=== PATIENT | male | born 1940 | race Caucasian/White ===

== ENCOUNTER 2019-12-06 15:32 | Inpatient (IN) | payer OTHER, MEDICARE ==
[~2019-12-06] VITALS: Ht 172.7 cm; Wt 113.0 kg
[~2019-12-06 15:32] MED LIST: ASPI325; Aspirin EC81 MG PO; BP MED; CALCIUM 500 +1 EAC4 PO; CARV25 PO; CLON.1 PO; CLOP75; CLOP75 PO; CRUTCH2 USE; DOC250 PO; DOXA2; Daily Vitamin1 EAC8 PO; Dyazide 37.5-21 EACH PO; FLUT1DIS5 INH; Flonase 0.05% N16 GM; GLUCHON PO; HYDACE5 PO; IBUP400 PO; IBUP600 PO; ISOMON20 PO; LISI20 PO; LOSA50 PO; METF500 PO; MONT10T PO; MULVITMINF; NAPR500 PO; NAPR550 PO; OXYACE5T PO; Protonix40 MG PO; ROSU10TA PO; ROSU5 PO; RXOXYACE PO; SALMON OIL; SIMV20; VENL37.5ER; VENL75ER PO; VITAMIN D PO; VYTORIN
[2019-12-06 15:57] LABS: BASOPHILS ABSOLUTE AUTO 0.07 K/mm3 (0.00-0.23); BASOPHILS PERCENT AUTO 1 % (0-2); EOSINOPHILS ABSOLUTE AUTO 0.09 K/mm3 (0.00-0.68); EOSINOPHILS PERCENT AUTO 1 % (0-6); Hematocrit 33.2 % (37.0-53.0); Hemoglobin 11.1 g/dL (13.5-17.5); IMMATURE GRAN ABSOLUTE AUTO 0.04 K/mm3 (0.00-0.10); IMMATURE GRAN PERCENT AUTO 0 % (0-1); LYMPHOCYTES PERCENT AUTO 18 % (21-46); MONOCYTES ABSOLUTE AUTO 0.69 K/mm3 (0.16-1.47); MONOCYTES PERCENT AUTO 6 % (4-13); Mean Corpuscular HGB Conc 33.4 g/dL (31.5-36.5); Mean Corpuscular Volume 96 fL (80-100); Mean Platelet Volume 11.6 fL (9.1-12.4); NEUTROPHILS ABSOLUTE AUTO 8.02 K/mm3 (1.96-9.15); NEUTROPHILS PERCENT AUTO 74 % (41-73); Platelet Count 262 K/mm3 (150-400); RDW Standard Deviation 45.3 fL (35.1-46.3); Red Blood Cell Count 3.47 M/mm3 (4.30-5.90); White Blood Cell Count 10.91 K/mm3 (4.00-11.30)
[2019-12-06 16:11] LABS: International Normalized Ratio 1.03
[2019-12-06 16:36] LABS: Albumin, Blood 3.4 g/dL (3.4-5.0); Bilirubin, Total 0.4 mg/dL (0.1-1.0); Bun/Creatinine Ratio 20.7 (12.0-20.0); Calcium, Blood 9.3 mg/dL (8.5-10.1); Creatinine, Blood 1.35 mg/dL (0.60-1.20); Globulin, Blood 3.3 g/dL (2.2-4.0); Potassium, Blood 4.1 mmol/L (3.5-5.5); Total Protein, Blood 6.7 g/dL (6.4-8.2)
[2019-12-06] MEDS ORDERED: HYDCHL25 (20:45)
[2019-12-06] MEDS ORDERED: PIOG15 PO (20:45)
[2019-12-06] MEDS ORDERED: POTCHL20ER (20:46)
[2019-12-06] MEDS ORDERED: ISOMON20 (20:46)
[2019-12-06] MEDS ORDERED: LOSA25 PO (20:47)
[2019-12-06] MEDS ORDERED: PROAIR DIGIHAL90 MCG (20:49)
[2019-12-06 23:00] LABS: Hematocrit 27.4 % (37.0-53.0); Hemoglobin 9.3 g/dL (13.5-17.5)
[2019-12-07 03:57] LABS: BASOPHILS ABSOLUTE AUTO 0.02 K/mm3 (0.00-0.23); BASOPHILS PERCENT AUTO 0 % (0-2); EOSINOPHILS ABSOLUTE AUTO 0.13 K/mm3 (0.00-0.68); EOSINOPHILS PERCENT AUTO 2 % (0-6); Hematocrit 26.5 % (37.0-53.0); IMMATURE GRAN ABSOLUTE AUTO 0.03 K/mm3 (0.00-0.10); IMMATURE GRAN PERCENT AUTO 0 % (0-1); LYMPHOCYTES ABSOLUTE AUTO 2.37 K/mm3 (0.84-5.20); LYMPHOCYTES PERCENT AUTO 30 % (21-46); MONOCYTES ABSOLUTE AUTO 0.67 K/mm3 (0.16-1.47); MONOCYTES PERCENT AUTO 9 % (4-13); Mean Corpuscular HGB 32.3 pg (26.0-34.0); Mean Corpuscular Volume 95 fL (80-100); Mean Platelet Volume 11.8 fL (9.1-12.4); NEUTROPHILS PERCENT AUTO 59 % (41-73); Platelet Count 190 K/mm3 (150-400); RDW Coefficient Variation 12.9 % (11.7-14.2); Red Blood Cell Count 2.79 M/mm3 (4.30-5.90); White Blood Cell Count 7.82 K/mm3 (4.00-11.30)
[2019-12-07 04:11] LABS: Bun/Creatinine Ratio 19.4 (12.0-20.0); Calcium, Blood 8.4 mg/dL (8.5-10.1); Creatinine, Blood 1.29 mg/dL (0.60-1.20); Potassium, Blood 3.7 mmol/L (3.5-5.5)
--- NOTE | 2019-12-07 06:21 | NUR ---
ADMIT NOTE/SHIFT SUMMARY PATIENT ADMITED EARLIER THIS SHIFT FROM THE ER. PATIENT PLEASENT AND COOPERATIVE UPON ARRIVAL TO THE UNIT. PATIENT ORIENTED TO THE ROOM, UNIT, AND CALL LIGHT. PATIENT REPORTS HE GETS DIZZY WHEN STANDING UP. PATIENT A STAND BY ASSIST TO THE BATHROOM. PATIENT HAS HAD TWO EPISODES OF BRIGHT RED BLEEDING RECTALLY LAST NIGHT. PROTONIX GTT RUNNING PER ORDERS. PATIENT USEING CPAP WITH CONTINUOUS BIOX WHILE ASLEEP. VITAL SIGNS CHARTED. WILL CONTINUE TO MONITOR PATIENT AND REPORT TO ONCOMING RN.
--- NOTE | 2019-12-07 08:14 | NUR ---
AM NOTE... ASSUMED CARE OF PT APROX 0700, PT IS A&Ox4 AND IND IN THE ROOM. PT WAS ADMITTED FOR GIB/RECTAL BLEEDING WITH BRIGH RED/BLACK TARRY STOOLS. CURRENTLY PT'S VS STABLE, PT'S H&H HAD DROPPED FROM 11 TO 9 SINCE ADMIT LAST NIGHT. PT DENIES ABD PAIN AT THIS TIME. BT PRESENT AND HYPOACTIVE ABD IS FRIM BUT NONTENDER TO PALP. L/S CLEAR T/O ON RA USES CPAP TO SLEEP. CALL LIGHT IN REACH WILL CONTINUE TO MONITOR
--- NOTE | 2019-12-07 11:09 | NUR ---
PT UPDATE... GI PROVIDER IN THE ROOM PT IS TO BE ON FULL LIQUIDS UNTIL Fri THEN NPO FOR SCOPE ON FRIDAY. PT IS AGREEABLE TO THIS PLAN OF CARE.
[2019-12-07 13:57] LABS: Hematocrit 26.7 % (37.0-53.0)
--- NOTE | 2019-12-07 17:13 | NUR ---
SHIFT SUMMARY. NO ACUTE NEGATIVE CHANGES NOTED THIS SHIFT. PT'S H&H HAS REMAINED STABLE AT THIS TIME. PT HAS HAD 2 BLOODY STOOLS THIS SHIFT. HE DENIES ANY ABD PAIN, BT PRESENT AND HYPOACTIVE, ABD IS STILL SLIGHLTY FIRM BUT NONTENDER TO PALP. PT IS C/O OF INCREASED GAS AT THIS TIME. PT HAS BEEN IND IN THE ROOM. VS STABLE T/O SHIFT. CALL LIGHT IN REACH WILL CONTINUE TO MONITOR UNTIL REPORT IS GIVEN TO ONCOMING RN.
[2019-12-07 20:42] LABS: Hemoglobin 9.6 g/dL (13.5-17.5)
[2019-12-08 04:09] LABS: BASOPHILS ABSOLUTE AUTO 0.05 K/mm3 (0.00-0.23); BASOPHILS PERCENT AUTO 1 % (0-2); EOSINOPHILS ABSOLUTE AUTO 0.14 K/mm3 (0.00-0.68); EOSINOPHILS PERCENT AUTO 2 % (0-6); Hematocrit 26.9 % (37.0-53.0); IMMATURE GRAN ABSOLUTE AUTO 0.03 K/mm3 (0.00-0.10); IMMATURE GRAN PERCENT AUTO 0 % (0-1); LYMPHOCYTES ABSOLUTE AUTO 2.44 K/mm3 (0.84-5.20); LYMPHOCYTES PERCENT AUTO 33 % (21-46); MONOCYTES ABSOLUTE AUTO 0.59 K/mm3 (0.16-1.47); MONOCYTES PERCENT AUTO 8 % (4-13); Mean Corpuscular HGB Conc 33.5 g/dL (31.5-36.5); Mean Corpuscular Volume 96 fL (80-100); Mean Platelet Volume 12.1 fL (9.1-12.4); NEUTROPHILS ABSOLUTE AUTO 4.19 K/mm3 (1.96-9.15); NEUTROPHILS PERCENT AUTO 56 % (41-73); Platelet Count 190 K/mm3 (150-400); RDW Standard Deviation 45.5 fL (35.1-46.3); Red Blood Cell Count 2.81 M/mm3 (4.30-5.90); White Blood Cell Count 7.44 K/mm3 (4.00-11.30)
[2019-12-08 04:30] LABS: Albumin, Blood 3.1 g/dL (3.4-5.0); Anion Gap 4 mmol/L (6-16); Blood Urea Nitrogen 21 mg/dL (8-24); Bun/Creatinine Ratio 16.8 (12.0-20.0); CO2, Blood 27 mmol/L (21-32); Calcium, Blood 8.4 mg/dL (8.5-10.1); Chloride, Blood 108 mmol/L (98-108); Creatinine, Blood 1.25 mg/dL (0.60-1.20); Glomerular Filtration Rate 59 (60-); Glucose, Blood 134 mg/dL (70-99); Phosphorus, Blood 3.2 mg/dL (2.5-4.9); Potassium, Blood 3.7 mmol/L (3.5-5.5); Sodium, Blood 139 mmol/L (136-145)
--- NOTE | 2019-12-08 06:44 | NUR ---
SHIFT SUMMARY PT REMAINS A&O X4, INDEPENDENT IN THE ROOM, VSS, ON ROOM AIR W CPAP WHILE SLEEPING. PT STATES HIS STOOLS HAVE SLOWED DOWN, 2 BM'S REPORTED THROUGH THE NIGHT. VOIDING WNL, PT DENIES PAIN/NAUSEA, TOLERATING CLEAR FLUIDS. ABD REMAINS DISTENDED. PROTONIX INFUSING PER EMAR. CALL LIGHT IN REACH. WCTM
--- NOTE | 2019-12-08 08:52 | NUR ---
AM NOTE... ASSUMED CARE OF PT APROX 0700. PT WAS ADMITTED FOR MELENA/GIB. PT HAS STATED NO BM SINCE YESTERDAY AFTERNOON. PT DENIES ABD PAIN AT THIS TIME. BT PRESENT AND HYPOACTIVE, ABD SLIGHTLY FIRM STILL BUT NONTENDER TO PALP. PT'S VS STABLE AT THIS TIME. PT HAS BEEN PUT ON CLEAR LIQUID DIET FOR COLONOSCOPY TOMORROW. CALL LIGHT IN REACH WILL CONTINUE TO MONITOR.
--- NOTE | 2019-12-08 17:21 | NUR ---
SHIFT SUMMARY... NO AUCUTE NEGATIVE CHANGES NOTED THIS SHIFT. PT'S VS HAVE BEEN STABLE. PT DENIES ANY PAIN AT ALL. PT HAS HAD 3 BRIGHT RED BLOODY STOOLS THIS SHIFT. PT IS GOING TO START COLON PREP AT 1900, HE CAN HAVE WATER UNTIL 0600 THEN NPO PER PROVIDER ORDERS. PT HAS BEEN IND IN THE ROOM. CALL LIGHT IN REACH WILL CONTINUE TO MONITOR UNTIL REPORT IS GIVEN TO ONCOMING RN.
--- NOTE | 2019-12-09 05:26 | NUR ---
SHIFT SUMMARY PT REMAINS A&O X4, ON ROOM AIR, VSS, INDEPENDENT IN THE ROOM. PT HAS COMPLETED HIS BOWEL PREP SOLUTION, HIS BM THIS AM IS CLEAR LIQUID. PT TOLERATED THE BOWEL PREP WITH NO PROBLEMS. PT WILL BE NPO AFTER 0600. PT CONTINUES TO PAIN. NO OTHER ACUTE CHANGES NOTED. WCTM
--- NOTE | 2019-12-09 07:43 | NUR ---
AM NOTE... ASSUMED CARE OF PT APROX 0700, PT IS A&OxE4 AND IND IN THE ROOM. PT IS HAVING COLONOSCOPY TODAY, COLON PREP WAS COMPLETED, STOOLS ARE CLEAR WITH SOME BLOOD NO SEDIMENT. PT'S VS STABLE. PT DENIES ANY ABD PAIN AT THIS TIME, BT PRESENT AND HYPERACTIVE ABD IS FRIM BUT NONTENDER TO PALP. PT HAS BEEN NPO SINCE 0600. CALL LIGHT IN REACH WILL CONTINUE TO MONITOR.
[2019-12-09 08:09] LABS: Hematocrit 25.7 % (37.0-53.0); Hemoglobin 8.8 g/dL (13.5-17.5)
--- NOTE | 2019-12-09 09:35 | NUR ---
12/09/19 0935 Renetta Cisneros History, Chart, Medications and Allergies reviewed before start of procedure. PATIENT CONFIRMS NPO STATUS AND AGREES WITH SCHEDULED PROCEDURE. MONITOR INTACT WITH CONTINUOUS PULSE OXIMETRY AND INTERMITTENT BP. O2 VIA N/C INTACT THROUGHOUT SEDATION/PROCEDURE. 3-LEAD EKG REVIEWED WITH PHYSICIAN PRIOR TO START OF PROCEDURE. DR. OLIVERA PROVIDING MAC.
[2019-12-09] MEDS ORDERED: CARV25 PO (15:15)
[2019-12-09] MEDS ORDERED: PANT20 PO (15:15)
--- NOTE | 2019-12-09 15:50 | NUR ---
PT D/C. PT D/C HOME AFTER COLONOSCOPY. PT'S VS STABLE. PT CURRENTLY DENIES ANY ABD PAIN/CHEST PAIN, N/V OR SOB. ALL OF PT'S BELONGINGS PACKED AND SENT WITH THE PT. IV WAS REMOVED WNL. NEW MEDICATION EDUCATION PROVIDED TO PT VERBALLY AND WRITTEN, DISCHARGE INSTRUCTIONS PROVIDED TO THE PT VERBALLY AND WRITTEN. PT REFUSED W/C ESCORT OUT OF THE BUILDING.
== END 2019-12-09 15:57 | disposition home or self-care (01) | DRG 378 ==
LOC: ER 15:32 → ERHOLD 15:33 → PCU 15:33
PROVIDERS: Emergency Medicine; Internal Medicine Gastroenterology; ADMIT Family Medicine
PROC: 0DBK8ZZ Excision of Ascending Colon, Via Natural or Artificial Opening Endoscopic (ICD-10-PCS; principal; 2019-12-09 10:30)
PROC: 0DBL8ZZ Excision of Transverse Colon, Via Natural or Artificial Opening Endoscopic (ICD-10-PCS; 2019-12-09 10:30)
PROC: 0DBN8ZZ Excision of Sigmoid Colon, Via Natural or Artificial Opening Endoscopic (ICD-10-PCS; 2019-12-09 10:30)
PROC: 0DBH8ZZ Excision of Cecum, Via Natural or Artificial Opening Endoscopic (ICD-10-PCS; 2019-12-09 10:30)
DX: K57.31 Diverticulosis of large intestine without perforation or abscess with bleeding (principal); D62 Acute posthemorrhagic anemia; N17.9 Acute kidney failure, unspecified; K63.5 Polyp of colon; Z79.82 Long term (current) use of aspirin; Z87.891 Personal history of nicotine dependence; Z95.1 Presence of aortocoronary bypass graft; I25.10 Atherosclerotic heart disease of native coronary artery without angina pectoris; Z79.02 Long term (current) use of antithrombotics/antiplatelets; Z66 Do not resuscitate; E78.5 Hyperlipidemia, unspecified; J44.9 Chronic obstructive pulmonary disease, unspecified; E03.9 Hypothyroidism, unspecified; G47.33 Obstructive sleep apnea (adult) (pediatric); K64.8 Other hemorrhoids; N18.3 Chronic kidney disease, stage 3 (moderate); I12.9 Hypertensive chronic kidney disease with stage 1 through stage 4 chronic kidney disease, or unspecified chronic kidney disease
CPT/HCPCS: 36415; 80048; 80053; 80069; 82272; 82947; 85014; 85018; 85025; 85610; 85730; 86850; 86900; 86901; 88305; 94640; 94660; 94762; 96366; 96374; 96376; 99285-25; A9270-GY; C9113; G0378; J2704; J7120

== ENCOUNTER → 2020-02-10 | Outpatient (CLI) | payer MEDICARE, OTHER ==
[~2020-02-10] MED LIST changes: +HYDCHL25; +ISOMON20; +LOSA25 PO; +PANT20 PO; +PIOG15 PO; +POTCHL20ER; +PROAIR DIGIHAL90 MCG
[2020-02-10 20:20] LABS: Microalbumin, Urine Quant. <5.000 mg/L (0.000-20.000); Protein, Urine Quantitative <5.0 mg/dL (0.0-11.9)
== END | disposition home or self-care (01) ==
LOC: LAB 11:00 → LAB SHORT 11:00
PROVIDERS: Internal Medicine Nephrology
DX: N18.3 Chronic kidney disease, stage 3 (moderate) (principal); D63.1 Anemia in chronic kidney disease; N25.81 Secondary hyperparathyroidism of renal origin; E55.9 Vitamin D deficiency, unspecified; R76.9 Abnormal immunological finding in serum, unspecified; R94.5 Abnormal results of liver function studies; R94.6 Abnormal results of thyroid function studies; D51.8 Other vitamin B12 deficiency anemias; D50.9 Iron deficiency anemia, unspecified; D52.8 Other folate deficiency anemias
CPT/HCPCS: 81050; 82043; 82570; 84156

== ENCOUNTER 2020-05-09 20:35 | Inpatient (IN) | payer OTHER, MEDICARE ==
[~2020-05-09] VITALS: Ht 172.7 cm; Wt 113.0 kg
[2020-05-09] MEDS ORDERED: ALBU90OI INH (20:52)
[2020-05-09] MEDS ORDERED: Isosorbide Mono30 MG PO (20:53)
[2020-05-09 22:03] LABS: BASOPHILS ABSOLUTE AUTO 0.01 K/mm3 (0.00-0.23); BASOPHILS PERCENT AUTO 0 % (0-2); EOSINOPHILS PERCENT AUTO 0 % (0-6); Hematocrit 42.3 % (37.0-53.0); Hemoglobin 14.7 g/dL (13.5-17.5); IMMATURE GRAN ABSOLUTE AUTO 0.03 K/mm3 (0.00-0.10); IMMATURE GRAN PERCENT AUTO 0 % (0-1); LYMPHOCYTES ABSOLUTE AUTO 1.23 K/mm3 (0.84-5.20); LYMPHOCYTES PERCENT AUTO 17 % (21-46); MONOCYTES ABSOLUTE AUTO 0.38 K/mm3 (0.16-1.47); MONOCYTES PERCENT AUTO 5 % (4-13); Mean Corpuscular HGB 30.4 pg (26.0-34.0); Mean Corpuscular HGB Conc 34.8 g/dL (31.5-36.5); Mean Corpuscular Volume 87 fL (80-100); Mean Platelet Volume 12.5 fL (9.1-12.4); NEUTROPHILS ABSOLUTE AUTO 5.61 K/mm3 (1.96-9.15); NEUTROPHILS PERCENT AUTO 77 % (41-73); Platelet Count 202 K/mm3 (150-400); RDW Coefficient Variation 15.9 % (11.7-14.2); RDW Standard Deviation 51.1 fL (35.1-46.3); Red Blood Cell Count 4.84 M/mm3 (4.30-5.90); White Blood Cell Count 7.26 K/mm3 (4.00-11.30)
[2020-05-09 22:23] LABS: Magnesium, Blood 2.1 mg/dL (1.6-2.4); Troponin I 0.043 ng/mL (0.000-0.040)
[2020-05-09 22:24] LABS: Albumin, Blood 3.1 g/dL (3.4-5.0); Albumin/Globulin Ratio 0.7 (0.8-1.8); Bilirubin, Total 0.6 mg/dL (0.1-1.0); Bun/Creatinine Ratio 21.5 (12.0-20.0); Calcium, Blood 8.6 mg/dL (8.5-10.1); Creatinine, Blood 1.81 mg/dL (0.60-1.20); Globulin, Blood 4.5 g/dL (2.2-4.0); Potassium, Blood 3.8 mmol/L (3.5-5.5); Total Protein, Blood 7.6 g/dL (6.4-8.2)
--- NOTE | 2020-05-10 01:15 | NUR ---
RECEIVED HAND OFF FROM Martine CABALLERO RN USING SBAR. TRANSPORTED TO ROOM PCU12 VIA STRETCHER. TRANSFERED SELF TO BED WITH STANDBY ASSIST, TOLERATED WELL. AAO X3, DIAL, FOLLOWES ALL COMMANDS. ORIENTED TO ROOM, CALL SYSTEM, AND POC, VOICES UNSERSTANDING. RESPIRATIONS EVEN AND UNLABORED ON O2 AT 2L/NC. LUNG SOUNDS COARSE BILATERALLY. ABDOMEN ROUND AND NONDISTENDED. BOWEL SOUNDS PRESENT IN ALL QUADS. STATES HAD DIARRHEA BM THIS AM AND IS NOT NORMAL FOR HIM. RIGHT HAND 20G PIV IS PATENT, INFUSING LEVAQUIN 750MG PER MD ORDERS. LEFT HAND SL PIV IS PATENT, FLUSHING WITH EASE. NO EDEMA NOTED. USES URINAL WITH EASE. DENEIS PAIN, DISCOMFORT, OR FURTHER NEEDS AT THIS TIME. SAFETY MEASURES IN PLACE. ADMISSION ASSESSMENT IN PROGRESS. WILL CONTINUE TO MONITOR.
[2020-05-10] MEDS ORDERED: ASPIR 8181 M1 PO (01:18)
--- NOTE | 2020-05-10 04:52 | NUR ---
SHIFT SUMMARY LYING IN SEMI FOWLERS WITH EYES CLOSED. HAS TRIED TO REST SINCE ADMISSION. AMBULATED TO COMMODE WITH STANDBY ASSIST, TOLERATED WELL. DENIES PAIN OR DISCOMFORT, OR FURTHER NEEDS AT THIS TIME. SAFETY MEASURES IN PLACE. WILL CONTINUE TO MONITOR AND GIVE HAND OFF TO ONCOMING SHIFT USING SBAR.
[2020-05-10 06:54] LABS: BASOPHILS PERCENT AUTO 0 % (0-2); EOSINOPHILS PERCENT AUTO 0 % (0-6); Hematocrit 45.9 % (37.0-53.0); Hemoglobin 15.6 g/dL (13.5-17.5); IMMATURE GRAN ABSOLUTE AUTO 0.01 K/mm3 (0.00-0.10); IMMATURE GRAN PERCENT AUTO 0 % (0-1); LYMPHOCYTES ABSOLUTE AUTO 0.76 K/mm3 (0.84-5.20); LYMPHOCYTES PERCENT AUTO 18 % (21-46); MONOCYTES ABSOLUTE AUTO 0.22 K/mm3 (0.16-1.47); MONOCYTES PERCENT AUTO 5 % (4-13); Mean Corpuscular HGB 30.2 pg (26.0-34.0); Mean Corpuscular Volume 89 fL (80-100); Mean Platelet Volume 12.7 fL (9.1-12.4); NEUTROPHILS ABSOLUTE AUTO 3.34 K/mm3 (1.96-9.15); NEUTROPHILS PERCENT AUTO 77 % (41-73); Platelet Count 214 K/mm3 (150-400); RDW Coefficient Variation 15.9 % (11.7-14.2); RDW Standard Deviation 52.1 fL (35.1-46.3); Red Blood Cell Count 5.17 M/mm3 (4.30-5.90); White Blood Cell Count 4.33 K/mm3 (4.00-11.30)
[2020-05-10 07:17] LABS: Albumin, Blood 3.1 g/dL (3.4-5.0); Albumin/Globulin Ratio 0.6 (0.8-1.8); Bilirubin, Total 0.6 mg/dL (0.1-1.0); Calcium, Blood 8.5 mg/dL (8.5-10.1); Creatinine, Blood 1.68 mg/dL (0.60-1.20); Globulin, Blood 5.1 g/dL (2.2-4.0); Potassium, Blood 3.8 mmol/L (3.5-5.5); Total Protein, Blood 8.2 g/dL (6.4-8.2); Troponin I 0.024 ng/mL (0.000-0.040)
[2020-05-10 07:32] LABS: Creatine Kinase MB 6.1 ng/mL (0.0-3.6); Creatine Kinase MB Index 0.7 (0.0-4.0)
--- NOTE | 2020-05-10 12:54 | NUR ---
Echocardiogram completed.
--- NOTE | 2020-05-10 17:42 | NUR ---
SHIFT SUMMARY PT A&Ox4; FORGETFUL AT TIMES. CALM AND COOPERATIVE WITH CARE. TREMORS NOTED. PT DENIES PAIN, CHEST PAIN, NAUSEA, AND DIZZINESS. PT REPORTS SOB WITH ACTIVITY; SPO2>90% ON RA AT REST; 2L O2 VIA NC WITH ACTIVITY. 1 PERSON ASSIST TO BATHROOM WITH WALKER. VSS. NO OTHER ACUTE CHANGES NOTED DURING SHIFT. WILL CONTINUE TO MONITOR UNITL REPORT GIVEN TO ONCOMING RN.
--- NOTE | 2020-05-10 18:35 | NUR ---
SHIFT SUMMARY THIS AM PT RESPONDING TO VERBAL STIMULI; QUICKYL FALLING BACK TO SLEEP. DR BRITT AT BEDSIDE; NEW ORDERS FOR STAT ABG; DR NOTIFIED OF RESULTS; RT TO BEDSIDE TO CHANGE BIPAP SETTING. AFTER APPROX AN HOUR ON BIPAP PT MORE AWAKE; ORIENTED x3; ANXIOUS AT TIME, COOPERATIVE WITH CARE. PT RESTING IN BED, REPOSITIONED FOR COMFORT AND PRESSURE ULCER PREVENTION. PT DENIES PAIN, NAUSEA, CHEST PAIN, AND DIZZINESS. PT SOB WITH ACTIVITY/SPEAKING. OTHER VSS. NO OTHER ACUTE CHANGES NOTED DURING SHIFT. WILL CONTINUE TO MONITOR REPORT GIVEN TO ONCOMING RN.
--- NOTE | 2020-05-10 20:30 | NUR ---
DR. GOODWIN CALLED TO REPORT ECHO RESULTS; POSSIBLE AORTIC VALVE VEGETATION; NOTIFY HOSPITALIST FOR POSSIBLE CARDIO CONSULT.
--- NOTE | 2020-05-10 20:53 | NUR ---
CALLED SHELBY SANTANA TO UPDATE ON [facility] RESULTS; CALL HOSPITALIST AT 0700 FOR POSSIBLE CARDIO CONSULT NEED.
--- NOTE | 2020-05-10 21:48 | NUR ---
ASSUMED CARE OF PATIENT AT APPROXIMATELY 1905 FROM TRACI Castro RN. PATIENT IN ISOLATION FOR COVID. PATIENT ALERT AND ORIENTED X4; FORGETFUL AT TIMES; WEAK; REPORTS FEELS WEAKER TODAY COMPARED TO YESTERDAY; HAS NEW TREMOR THIS WEEK. PATIENT SBA OUT OF BED. PATIENT'S DAUGHTER CALLED AND BROUGHT PATIENT'S GALSSES IN. PATIENT REPORTED HIS EYES WERE BURNING; IMPROVED AFTER USES COOL WASHCLOTH. PATIENT DENIES PAIN, NUMBNESS, TINGLING, DIZZINESS OR NAUSEA. PATIENT REPORTS POOR APPETITE. PIV X2. CPAP BEING SET UP IN ROOM; PATIENT WEARS ONE AT NIGHT AT HOME; DAUGHTER TO BRING IN HOME CPAP TOMORROW. MEDICAL NO TELE STATUS. OXYGEN SATURATION ABOVE 90% ON ROOM AIR; 2LPM VIA NC W/ AMBULATION. PATIENT CURRENLTY RESTING IN BED; CALL LIGHT IN REACH; BED IN LOWEST POSISTION; BED ALARM ON; WILL CONTINUE TO MONITOR AND ASSESS UNTIL END OF SHIFT.
[2020-05-11 04:19] LABS: BASOPHILS ABSOLUTE AUTO 0.01 K/mm3 (0.00-0.23); BASOPHILS PERCENT AUTO 0 % (0-2); EOSINOPHILS PERCENT AUTO 0 % (0-6); Hematocrit 45.2 % (37.0-53.0); Hemoglobin 15.4 g/dL (13.5-17.5); IMMATURE GRAN ABSOLUTE AUTO 0.04 K/mm3 (0.00-0.10); IMMATURE GRAN PERCENT AUTO 1 % (0-1); LYMPHOCYTES ABSOLUTE AUTO 1.31 K/mm3 (0.84-5.20); LYMPHOCYTES PERCENT AUTO 16 % (21-46); MONOCYTES ABSOLUTE AUTO 0.45 K/mm3 (0.16-1.47); MONOCYTES PERCENT AUTO 6 % (4-13); Mean Corpuscular HGB 30.1 pg (26.0-34.0); Mean Corpuscular HGB Conc 34.1 g/dL (31.5-36.5); Mean Corpuscular Volume 88 fL (80-100); Mean Platelet Volume 12.7 fL (9.1-12.4); NEUTROPHILS ABSOLUTE AUTO 6.35 K/mm3 (1.96-9.15); NEUTROPHILS PERCENT AUTO 78 % (41-73); Platelet Count 232 K/mm3 (150-400); RDW Coefficient Variation 15.9 % (11.7-14.2); RDW Standard Deviation 51.5 fL (35.1-46.3); Red Blood Cell Count 5.12 M/mm3 (4.30-5.90); White Blood Cell Count 8.16 K/mm3 (4.00-11.30)
[2020-05-11 04:41] LABS: Albumin, Blood 2.9 g/dL (3.4-5.0); Albumin/Globulin Ratio 0.6 (0.8-1.8); Bilirubin, Total 0.4 mg/dL (0.1-1.0); Bun/Creatinine Ratio 30.3 (12.0-20.0); Calcium, Blood 8.9 mg/dL (8.5-10.1); Creatinine, Blood 2.01 mg/dL (0.60-1.20); Globulin, Blood 4.8 g/dL (2.2-4.0); Magnesium, Blood 2.6 mg/dL (1.6-2.4); Potassium, Blood 3.8 mmol/L (3.5-5.5); Total Protein, Blood 7.7 g/dL (6.4-8.2)
--- NOTE | 2020-05-11 06:11 | NUR ---
PATIENT SLEPT ABOUT SIX HOURS LAST NIGHT; CPAP SET UP BY RT; DAUGHTER TO BRING IN HOME CPAP TODAY. PATIENT HAD BEDBATH WITH ASSIST. VSS. CBG WITH MORNING LABS IN 300'S; DR. HAYWARD NOTIFIED; ORDERS FOR CBG AND MEDIUM SLIDING SCALE. WILL CONTINUE TO MONITOR AND ASSESS UNTIL END OF SHIFT.
--- NOTE | 2020-05-11 09:26 | NUR ---
Call from Dr. Chao while I was in the pt's room. He states that with covid positivity and pt's overall stable condition, GERARD not advised at this time. He will call DR. iNx, the hospitalist, he said. Phone number of Dr. Nix given to him at this time.
--- NOTE | 2020-05-11 10:01 | NUR ---
Kana is sitting up in the chair beside his bed. He is pleasantly conversant, cooperative, and alert and oriented. STates that he is being bothered by a persistent, dry cough which interferes with his rest and sleep. Lung sounds are clear anteriorly, but fine inspiratory crackles noted in the bases. He states that he is not able to take in really deep breaths right now. Denies any other concerns at this time.
--- NOTE | 2020-05-11 11:53 | NUR ---
Attempted to reach Dr. Simms rgarding blood sugar greater than 400. Pt was given 12 u insulin per standing orders. He is sitting on the side of the bed, eating lunch. STates that he had an unremarkable bowel movement this morning. States he takes Glimiperide 5 mg bid at home, as well as Metformin 500 mg daily.
[2020-05-11] MEDS ORDERED: GLIP5 PO (11:56)
[2020-05-11] MEDS ORDERED: METF500 PO (11:56)
--- NOTE | 2020-05-11 13:44 | NUR ---
Blood sugar rechecked 2 hours post greater than 400 result, and post 12 u delivery of sc humalog. Results remain greater than 400. Left message for Dr. Simms. Lantus was given per orders, and IV fluids were started at this time as well. Dr. Merino here to see the patient. Tessalon Perle was given per PRN orders and pt request for irritating dry cough.
--- NOTE | 2020-05-11 14:08 | NUR ---
Kana has been alert, oriented, pleasantly conversant, and without additional complaints this afternoon. Dr. Merino was here to see him. Kana has been independently ambulatory to the bathroom to void and have a BM today. Appetite is good, and he is asking when he might be able to go home. Dr. Merino tells him that he will probably be here at least until Friday.
--- NOTE | 2020-05-11 22:16 | NUR ---
ASSUMED CARE OF PATIENT AT APPROXIMATELY 1905 FROM DASHA Pardo RN. PATIENT IN ISOLATION FOR COVID. PATIENT ALERT AND ORIENTED X4; FORGETFUL AT TIMES; REPORTS DOESNT FEEL BETTER TODAY; TREMOR W/ AMBULATION; PATIENT SBA OUT OF BED. PATIENT DENIES PAIN, NUMBNESS, TINGLING, DIZZINESS OR NAUSEA. PATIENT REPORTS APPETITE IMPROVING. PIV X2. MEDICAL NO TELE STATUS. OXYGEN SATURATION ABOVE 90% ON ROOM AIR; 2LPM VIA NC W/ AMBULATION; HOME CPAP SET UP AND PATIENT USING AT NIGHT. PATIENT CURRENLTY RESTING IN BED; CALL LIGHT IN REACH; BED IN LOWEST POSISTION; BED ALARM ON; WILL CONTINUE TO MONITOR AND ASSESS UNTIL END OF SHIFT.
--- NOTE | 2020-05-12 06:20 | NUR ---
PATIENT SLEPT ABOUT EIGHT HOURS LAST NIGHT. VSS. WILL CONTINUE TO MONITOR AND ASSESS UNTIL END OF SHIFT.
[2020-05-12 08:28] LABS: BASOPHILS ABSOLUTE AUTO 0.01 K/mm3 (0.00-0.23); BASOPHILS PERCENT AUTO 0 % (0-2); EOSINOPHILS PERCENT AUTO 0 % (0-6); Hematocrit 42.3 % (37.0-53.0); Hemoglobin 14.5 g/dL (13.5-17.5); IMMATURE GRAN ABSOLUTE AUTO 0.11 K/mm3 (0.00-0.10); IMMATURE GRAN PERCENT AUTO 1 % (0-1); LYMPHOCYTES ABSOLUTE AUTO 0.98 K/mm3 (0.84-5.20); LYMPHOCYTES PERCENT AUTO 8 % (21-46); MONOCYTES ABSOLUTE AUTO 0.54 K/mm3 (0.16-1.47); MONOCYTES PERCENT AUTO 4 % (4-13); Mean Corpuscular HGB 29.8 pg (26.0-34.0); Mean Corpuscular HGB Conc 34.3 g/dL (31.5-36.5); Mean Corpuscular Volume 87 fL (80-100); NEUTROPHILS ABSOLUTE AUTO 11.42 K/mm3 (1.96-9.15); NEUTROPHILS PERCENT AUTO 88 % (41-73); Platelet Count 265 K/mm3 (150-400); RDW Coefficient Variation 15.8 % (11.7-14.2); RDW Standard Deviation 50.2 fL (35.1-46.3); Red Blood Cell Count 4.87 M/mm3 (4.30-5.90); White Blood Cell Count 13.06 K/mm3 (4.00-11.30)
[2020-05-12 08:45] LABS: Albumin/Globulin Ratio 0.7 (0.8-1.8); Bilirubin, Total 0.5 mg/dL (0.1-1.0); Bun/Creatinine Ratio 39.4 (12.0-20.0); Calcium, Blood 8.3 mg/dL (8.5-10.1); Creatinine, Blood 1.7 mg/dL (0.60-1.20); Globulin, Blood 4.2 g/dL (2.2-4.0); Potassium, Blood 3.8 mmol/L (3.5-5.5); Total Protein, Blood 7.2 g/dL (6.4-8.2)
--- NOTE | 2020-05-12 09:03 | NUR ---
Kana reports that his breathing is still difficult at times. STates he still can't take deep breaths easily.. STates that he is able to walk around as needed, to get to the bathroom and such. spo2 noted 90-91% while sitting on side of bed, eating breakfast. Lungs clear save for fine inspiratory crackles noted on right lower lobe. Pt reports appetite good. STates had about "3 ounces" of bright red blood passed in stool yesterday. STates brown loose BM today with about 1 tsp of maroon blood today, which is "better than yesterday". Denies pain.
--- NOTE | 2020-05-12 12:05 | NUR ---
Call to Dr. Simms regarding CBG at noon. Order received for 10 u Lantus now. The pt states he is not hungry, he is lying in bed, watching TV. Lunch tray held for now.
--- NOTE | 2020-05-12 17:20 | NUR ---
Pt is sitting on the side of the bed, eating dinner. CBG improved. PT states it has been a quiet afternoon, and that his breathing has been better. STates that he did produce a small amount of page sputum this afternoon. Vital signs stable.
--- NOTE | 2020-05-12 21:53 | NUR ---
ALERT AND ORIENTED, INDEPENDENT IN ROOM. SOB WITH AMBULATION TO THE BR, ON RA, BIOX 88% AFTER UP WALKING RECOVERS AFTER 15-20MINS. LUNGS ARE DECREASED WITH RHONCHI/WHEEZE THAT CLEARS WITH COUGH. NO COMPLAINTS OF PAIN. EATING WELL AND HYDRATING WITH WATER. PATIENT STATES THAT HE HAS BEEN VOIDING NORMALLY WITH YELLOW URINE. CALL LIGHT IS WITH IN REACH.
--- NOTE | 2020-05-13 04:41 | NUR ---
PATIENT SLEPT WITH CPAP ON. INDEPENDENT IN ROOM. NO ACUTE CHANGES.
[2020-05-13 08:23] LABS: BASOPHILS ABSOLUTE AUTO 0.01 K/mm3 (0.00-0.23); BASOPHILS PERCENT AUTO 0 % (0-2); EOSINOPHILS PERCENT AUTO 0 % (0-6); Hematocrit 40.8 % (37.0-53.0); Hemoglobin 14.2 g/dL (13.5-17.5); IMMATURE GRAN ABSOLUTE AUTO 0.05 K/mm3 (0.00-0.10); IMMATURE GRAN PERCENT AUTO 0 % (0-1); LYMPHOCYTES ABSOLUTE AUTO 0.96 K/mm3 (0.84-5.20); LYMPHOCYTES PERCENT AUTO 8 % (21-46); MONOCYTES ABSOLUTE AUTO 0.67 K/mm3 (0.16-1.47); MONOCYTES PERCENT AUTO 6 % (4-13); Mean Corpuscular HGB 30.1 pg (26.0-34.0); Mean Corpuscular HGB Conc 34.8 g/dL (31.5-36.5); Mean Corpuscular Volume 86 fL (80-100); Mean Platelet Volume 12.8 fL (9.1-12.4); NEUTROPHILS PERCENT AUTO 86 % (41-73); Platelet Count 250 K/mm3 (150-400); RDW Coefficient Variation 15.8 % (11.7-14.2); RDW Standard Deviation 50.1 fL (35.1-46.3); Red Blood Cell Count 4.72 M/mm3 (4.30-5.90); White Blood Cell Count 11.99 K/mm3 (4.00-11.30)
[2020-05-13 08:48] LABS: Albumin, Blood 2.9 g/dL (3.4-5.0); Albumin/Globulin Ratio 0.7 (0.8-1.8); Bilirubin, Total 0.6 mg/dL (0.1-1.0); Bun/Creatinine Ratio 39.4 (12.0-20.0); Calcium, Blood 8.3 mg/dL (8.5-10.1); Creatinine, Blood 1.55 mg/dL (0.60-1.20); Globulin, Blood 3.9 g/dL (2.2-4.0); Potassium, Blood 4.3 mmol/L (3.5-5.5); Total Protein, Blood 6.8 g/dL (6.4-8.2)
--- NOTE | 2020-05-13 18:40 | NUR ---
SUMMARY NO ACUTE CHANGES T/O SHIFT. PT INDEPENDENT IN ROOM. ON RA WHILE AWAKE, USES CPAP AT REST. COVERED CBGS PER ORDERS T/O SHIFT. PT REPORTED HAD THREE UNMEASURED VOIDS. CALL LIGHT IN REACH.
[2020-05-14 04:41] LABS: Bun/Creatinine Ratio 38.4 (12.0-20.0); Calcium, Blood 8.2 mg/dL (8.5-10.1); Creatinine, Blood 1.46 mg/dL (0.60-1.20); Magnesium, Blood 2.7 mg/dL (1.6-2.4); Potassium, Blood 3.9 mmol/L (3.5-5.5)
--- NOTE | 2020-05-14 06:50 | NUR ---
SHIFT SUMMARY PT SLEPT T/O SHIFT. PT WORE CPAP T/O SHIFT. OXYGEN SATURATION REMAINED ABOVE 92%. VS REMAIN STABLE. PT ALERT AND ORIENTED AND USES CALL LIGHT APPROPRIATELY. PT REPORTS NO CP OR PRESSURE. WILL CONTINUE TO MONITOR UNTIL REPORT GIVEN TO DAYSHIFT RN.
--- NOTE | 2020-05-14 07:30 | NUR ---
ASSUMED CARE OF PT AT 0700. REPORT FROM ARIADNA AGARWAL. PT RESTING IN BED. WAKES c VERBAL STIMULI. PT WEARING HOME CPAP. ON RA FOR MEALS. PT ABLE TO PLACE CPAP WHEN HE SLEEPS. DENIES NEEDS. REPORTS PRODUCTIVE COUGH c POSADA SPUTUM. PT SPEAKING IN FULL SENTANCES. LUNGS DIMINISHED IN BASES. PT P/W/D. VSS. PT INDEPENDENT IN ROOM. SITTING AT BEDSIDE FOR BREAKFAST. PT DENIES NEEDS. WILL CONTINUE TO MONITOR.
[2020-05-14 07:58] LABS: BASOPHILS ABSOLUTE AUTO 0.02 K/mm3 (0.00-0.23); BASOPHILS PERCENT AUTO 0 % (0-2); EOSINOPHILS PERCENT AUTO 0 % (0-6); Hemoglobin 13.6 g/dL (13.5-17.5); IMMATURE GRAN ABSOLUTE AUTO 0.12 K/mm3 (0.00-0.10); IMMATURE GRAN PERCENT AUTO 1 % (0-1); LYMPHOCYTES ABSOLUTE AUTO 1.23 K/mm3 (0.84-5.20); LYMPHOCYTES PERCENT AUTO 9 % (21-46); MONOCYTES ABSOLUTE AUTO 0.89 K/mm3 (0.16-1.47); MONOCYTES PERCENT AUTO 7 % (4-13); Mean Corpuscular HGB 29.8 pg (26.0-34.0); Mean Corpuscular Volume 88 fL (80-100); NEUTROPHILS ABSOLUTE AUTO 10.93 K/mm3 (1.96-9.15); NEUTROPHILS PERCENT AUTO 83 % (41-73); Platelet Count 229 K/mm3 (150-400); RDW Coefficient Variation 15.9 % (11.7-14.2); RDW Standard Deviation 51.2 fL (35.1-46.3); Red Blood Cell Count 4.57 M/mm3 (4.30-5.90); White Blood Cell Count 13.19 K/mm3 (4.00-11.30)
[2020-05-14 07:59] LABS: Mean Platelet Volume 13.4 fL (9.1-12.4)
[2020-05-14 09:24] LABS: Albumin, Blood 2.8 g/dL (3.4-5.0); Albumin/Globulin Ratio 0.8 (0.8-1.8); Bilirubin, Direct 0.1 mg/dL (0.0-0.3); Bilirubin, Indirect 0.4 mg/dL (0.1-0.7); Bilirubin, Total 0.5 mg/dL (0.1-1.0); Globulin, Blood 3.6 g/dL (2.2-4.0); Total Protein, Blood 6.4 g/dL (6.4-8.2)
--- NOTE | 2020-05-14 18:17 | NUR ---
SHIFT SUMMARY NO ACUTE CHANGES THIS SHIFT. PT INDEPENDENT IN ROOM. REPORTS MILD DYSNEA c EXERTION. REMAINED ON RA ENTIRE SHIFT. GOOD APPETITE. VSS. WILL CONTINUE TO MONITOR UNTIL REPORT TO ONCOMING NURSE.
--- NOTE | 2020-05-15 05:37 | NUR ---
SHIFT SUMMARY PT SLEPT T/O SHIFT. PT ALERT AND ORIENTED. PT WORE CPAP T/O SHIFT, OXYGEN SATURATION MAINTAINED ABOVE 92%. PT REPORTS NO CP OR OR PRESSURE. HR AND BP STABLE. WILL CONTINUE TO MONITOR UNTIL REPORT GIVEN TO DAYSHIFT RN.
--- NOTE | 2020-05-15 07:55 | NUR ---
ASSUMED CARE AT 0700, REPORT FROM STEFANO CONCEPCION. LAYING IN BED ON RIGHT SIDE. A/A/OX4. RA AT THIS TIME, VSS, PLAN OF CARE REVIEWED FOR DAY, DENIES NEEDS. WILL CONTINUE TO MONITOR.
[2020-05-15 15:08] LABS: Q FEVER PHASE I Negative (Neg:<1:16); Q FEVER PHASE II Negative (Neg:<1:16)
[2020-05-16 13:09] LABS: B. HENSELAE IGG Negative titer (Neg:<1:320); B. HENSELAE IGM Negative titer (Neg:<1:100); B. QUINTANA IGG Negative titer (Neg:<1:320); B. QUINTANA IGM Negative titer (Neg:<1:100)
== END 2020-05-15 16:43 | disposition home or self-care (01) | DRG 177 ==
LOC: ER 20:35 → PCU 23:29 → ERHOLD 23:29 → PCU 05-10 00:56
PROVIDERS: Emergency Medicine; Internal Medicine; Internal Medicine Infectious Disease; ADMIT Internal Medicine
DX: U07.1 COVID-19 (principal); J96.01 Acute respiratory failure with hypoxia; I38 Endocarditis, valve unspecified; I25.10 Atherosclerotic heart disease of native coronary artery without angina pectoris; E11.22 Type 2 diabetes mellitus with diabetic chronic kidney disease; I12.9 Hypertensive chronic kidney disease with stage 1 through stage 4 chronic kidney disease, or unspecified chronic kidney disease; N18.3 Chronic kidney disease, stage 3 (moderate); Z79.4 Long term (current) use of insulin; E78.5 Hyperlipidemia, unspecified; Z85.46 Personal history of malignant neoplasm of prostate; Z95.5 Presence of coronary angioplasty implant and graft; J45.909 Unspecified asthma, uncomplicated
CPT/HCPCS: 36415; 71045; 80048; 80053; 80076; 82550; 82553; 82947; 83735; 83880; 84484; 85025; 86611; 86638; 87040; 87449; 93005; 93010; 94640; 94760; 94762; 96374; 99285-25; A9270-GY; C8929; C9113; J1650; J1956; J2930; J7030; J7050; J7512; Q9957; U0002